=== PATIENT | female | born 1980 | race Two or more races ===

== ENCOUNTER 2024-03-13 19:11 | Emergency (ER) | payer MEDICAID, SELFPAY ==
[2024-03-13 19:12] VITALS: BMI 38.0
[2024-03-13 20:19] VITALS: BP 136/86; PULSE 82; RESP 16; TEMP 36.8; O2SAT 98
--- NOTE | 2024-03-13 20:25 | XR_ITS ---
Examination: Duplex scan of the lower extremity, unilateral left complete Date and time of exam: March 13, 2024 2037 hrs. Indications: Left leg swelling and pain today Technique: Duplex scan of the extremity veins using B-mode/grayscale imaging and Doppler spectral analysis and color flow Attention is directed to internal echogenicity, compression and augmentation involving these veins, color flow assessment, spectral analysis Findings: Major deep venous structures in the extremity demonstrate normal course and caliber. There is no evidence of deep vein thrombosis. Normal color flow and spectral analysis Impression: Negative for DVT..
--- NOTE | 2024-03-13 20:26 | PD.EDRME ---
Rapid Medical Screening Exam RME Arrival date/time: 03/13/24 19:11 43 year old female present to Ed for c/o of left leg pain for 1 day I have greeted and performed a focused initial assessment of this patient. A comprehensive ED assessment and evaluation of the patient, analysis of all test results, and completion of the medical decision making process will be conducted by additional ED providers. Chief Complaint: General Adult/Misc Complain Time Seen by Provider: 03/13/24 20:16 Vital signs: Vital Signs Temperature 98.3 F 03/13/24 20:19 Pulse Rate 82 03/13/24 20:19 Respiratory Rate 16 03/13/24 20:19 Blood Pressure 136/86 H 03/13/24 20:19 Pulse Oximetry (%) 98 03/13/24 20:19 Oxygen Delivery Method Room Air 03/13/24 20:19
--- NOTE | 2024-03-13 21:52 | EDNOTE_ITS ---
ED General RME/HPI General Chief complaint: General Adult/Misc Complain Stated complaint: LEFT LEG PAIN AND SWELLING Time Seen by Provider: 03/13/24 20:16 Arrival date/time: 03/13/24 19:11 43 year old female present to emergency room with c/o of left leg pain for 1 day. denies any trauma or injury, no history of dvt LOCATION: leg SEVERITY: Symptoms are described as being severe with limitations on activities of daily living QUALITY: Symptoms are described as being dull or achy CONTEXT: unsure DURATION/TIMING: The symptoms started approximately 1 day ago and have been constant this then. ASSOCIATED SYMPTOMS: The patient is unable to identify any other associated symptoms. MODIFYING FACTORS: The patient is unable to identify any alleviating or aggravating symptoms. PERTINENT ROS: no fevers, no headache, no neck or chest pain, no unexplained nausea or vomiting, no focal neurological deficits REVIEW OF SYSTEMS: See History of Present Illness - with the exception of those mentioned in the history of present illness, all other systems reviewed and reported as negative GENERAL: In general the patient is awake, interactive, in an emergency department gurney. HEAD/EYES/EARS/NOSE/THROAT: normo-cephalic, atraumatic, mucus membranes are moist, anicteric, palpebral conjunctiva is pink, trachea is midline. CARDIOVASCULAR: regular rate and regular rhythm, no murmurs, heart sounds are not distant, strong pulses in all four extremities that are equal and symmetric bilateral upper and lower extremities, normal capillary refill. CHEST/PULMONARY: normal chest rise and fall, good air movement, clear to auscultation bilaterally, normal inspiratory to expiratory ratios without evidence of respiratory distress. NECK: No midline/Paraspinal tenderness, no step off ROM/Strenght intact No Kernig and bruzinski sign. No trauma ABDOMEN: soft, not tender, no masses appreciated BACK: normal range of motion without pain. NEUROLOGICAL: cranio-facial features are symmetric, moves all four extremities equally without obvious limitations or weakness. EXTREMITY: left anerior lower leg pain. no sign of compartment syndrome or infection no tenderness to palpation over the long bones or large joints of the bilateral upper , no joint swelling, no joint erythema, no signs of trauma, no unilateral leg swelling and no peripheral edema. SKIN: warm, dry, well-perfused, no jaundice, no rash, no telangiectasias or petechia. PSYCH: calm, cooperative, no evidence of psychosis or agitation RME / HPI RME / HPI narrative: 03/13/24 19:11 43 year old female present to Ed for c/o of left leg pain for 1 day I have greeted and performed a focused initial assessment of this patient. A comprehensive ED assessment and evaluation of the patient, analysis of all test results, and completion of the medical decision making process will be conducted by additional ED providers. Related Data Previous Rx's ?Medication ?Instructions ?Recorded ibuprofen 800 mg tablet 800 mg PO TID PRN pain #30 tabs 09/07/19 cyclobenzaprine 10 mg tablet 10 mg PO TID PRN muscle spasm #20 10/17/21 tabs tramadol 50 mg tablet 50 mg PO TID PRN pain #20 tabs 10/17/21 dicyclomine 20 mg tablet 20 mg PO TID #30 tabs 12/10/22 ibuprofen 800 mg tablet 800 mg PO TID PRN pain #30 tabs 01/12/23 Allergies Allergy/AdvReac Type Severity Reaction Status Date / Time No Known Allergies Allergy Verified 01/12/23 17:00 Course Course Course Narrative: Patient presenting with leg pain and swelling.? Presentation concerning for DVT.? Also considered cellulitis, abscess, lymphedema, superficial thrombophlebitis, however these were not consistent with presentation.? ?Extremity ultrasound was obtained showing no evidence of DVT.? This finding was discussed with the patient.? At this time, most likely diagnosis is leg pain.? Symptomatic care was discussed.? I advised elevation above the heart.? An Chester wrap was applied.?? I have instructed the patient to return to the ER at any time if there are any new or worsening symptoms including uncontrolled pain, fever, shortness of breath, chest pain.? The patient expressed understanding of and agreement with this plan.? Opportunity was given for questions prior to discharge and all stated questions were answered to the patient's satisfaction.? Home care instructions provided.? Patient remained hemodynamically stable through ED course and was discharged home without event.? Quality Measures none Orders Category Date Time Status US venous doppler LE LT Stat Exams 03/13/24 20:25 Completed Vital Signs Vital signs: Vital Signs Temperature 98.3 F 03/13/24 20:19 Pulse Rate 82 03/13/24 20:19 Respiratory Rate 16 03/13/24 20:19 Blood Pressure 136/86 H 03/13/24 20:19 Pulse Oximetry (%) 98 03/13/24 20:19 Oxygen Delivery Method Room Air 03/13/24 20:19 [facility] Patient data External records reviewed:: None Clinical information provided by:: patient Social determinants that could affect healthcare access:: none Patient has the following chronic illnesses:: none How is presenting disease/condition affected by chronic disease/condition?: uneffected by Evaluation data The following diagnostics were reviewed and interpreted by me:: radiology exam(s) Lab and/or radiology exams considered but not ordered:: none Interpretation Summary: US: no dvt Medications Medications considered but not ordered:: none Medication administrations:: none Consultations Consultation(s) initiated? (list below): No Diagnosis Differential Diagnosis ED Complaint MDM: as stated above Most likely diagnosis given after review of the tests above:: leg pain Admission Indicated Admission indicated?: not indicated Explain why admission is indicated or not indicated:: none Admission Request Was there a request for admission?: No Disposition Plan Disposition Plan: Discharge Discharge Attestation Discharge Attestation: The patient and all family members were given an opportunity to ask questions and understood the discharge instructions. Discharge instructions specifically effects, indications for sooner follow up or return to the emergency department, and the expected course of current diagnosis. Patient condition: Stable Medical Decision Making Differential Diagnosis Differential Diagnosis: as stated above Discharge Plan Plan Patient Disposition: HOME (Self Care) Health Concerns: Follow with PMD as directed Take tylenol or motrin as need Return to ED if sx worsen Prescriptions/Referrals Prescriptions/Med Rec: No Action ibuprofen 800 mg tablet 800 mg PO TID PRN (Reason: pain) Qty: 30 0RF cyclobenzaprine 10 mg tablet 10 mg PO TID PRN (Reason: muscle spasm) Qty: 20 0RF tramadol 50 mg tablet 50 mg PO TID PRN (Reason: pain) Qty: 20 0RF ibuprofen 800 mg tablet 800 mg PO TID PRN (Reason: pain) Qty: 30 0RF dicyclomine 20 mg tablet 20 mg PO TID Qty: 30 0RF Referrals: Bertin Doyle MD [Primary Care Provider] - In 1 week Problem List Clinical Impression: Acute leg pain Patient/Caregiver Discharge Instructions Education Materials: ED RICE Print Language: Italian Stand Alone Forms: Kiesha Award Info., Patient Portal Info Letter
[2024-03-13 22:00] VITALS: BP 128/76; PULSE 100; RESP 18; TEMP 36.8; O2SAT 98
== END 2024-03-13 22:01 | disposition home or self-care (01) ==
PROVIDERS: Emergency Provider Emergency Medicine; PCP Family Medicine
DX: M79.605 Pain in left leg (principal); M79.89 Other specified soft tissue disorders
CPT/HCPCS: 93971; 99284